=== PATIENT | female | born 1975 | race Caucasian/White ===

== ENCOUNTER 2023-04-07 06:17 | Day surgery (SDC) | payer BC ==
[2023-04-07] MEDS ORDERED: fentaNYL 100 MCG/2 ML SDV ONE (06:28)
[2023-04-07] MEDS ORDERED: Midazolam 1 MG/ML 2 ML SDV ONE (06:28)
[2023-04-07] MEDS ORDERED: Dextrose 5%-0.45% NaCl 1,000 ML IV SCH (06:30)
[2023-04-07] MEDS ORDERED: fentaNYL 100 MCG/2 ML SDV IV ONE ×3 (07:29→07:38)
[2023-04-07] MEDS ORDERED: Midazolam 1 MG/ML 2 ML SDV IV ONE ×6 (07:30→07:34)
[2023-04-07 07:59] VITALS: PULSE 77
[2023-04-07 08:36] VITALS: BP 134/80
== END 2023-04-07 08:58 | disposition home or self-care (01) ==
LOC: DL.ENDO 06:17
PROVIDERS: ATTEND Internal Medicine Gastroenterology
DX: Z12.11 Encounter for screening for malignant neoplasm of colon (principal); E11.9 Type 2 diabetes mellitus without complications; E78.5 Hyperlipidemia, unspecified; I10 Essential (primary) hypertension; G47.33 Obstructive sleep apnea (adult) (pediatric); G47.09 Other insomnia; F41.1 Generalized anxiety disorder; F32.A Depression, unspecified; J45.998 Other asthma; N76.0 Acute vaginitis; Z88.1 Allergy status to other antibiotic agents; E66.09 Other obesity due to excess calories; F17.210 Nicotine dependence, cigarettes, uncomplicated; Z98.890 Other specified postprocedural states; Z68.39 Body mass index [BMI] 39.0-39.9, adult
CPT/HCPCS: 45378; J2250; J3010; J7042